=== PATIENT | male | born 1970 | race Caucasian/White ===

== ENCOUNTER 2021-01-23 01:47 | Emergency (ER) | payer MEDICAID ==
[~2021-01-23] VITALS: Ht 180.3 cm; Wt 64.1 kg
[~2021-01-23 01:47] MED LIST: ALPR2TAB2; GABA400C; IBUP-1623
--- NOTE | 2021-01-23 02:40 | NUR ---
pt presents to ER for chest pain, pt states he has pain in the left side of his chest since yesterday, pt states the pain radiates to his left arm and left side of his face as well, pt states he feels dizzy and short of breath as well, pt states he was throwing up before this started
[2021-01-23] MEDS ORDERED: DIAZEPAM 5 MG TABLET ONE (03:23)
[2021-01-23 03:29] LABS: BASOPHILS % (AUTO) 1 % (0-1); EOSINOPHILS % (AUTO) 2 % (1-7); LYMPHOCYTES % (AUTO) 31 % (22-44); MEAN CORPUSCULAR HEMOGLOBIN 32.9 pg (27.5-34.5); MEAN CORPUSCULAR HGB CONC 34.4 g/dL (33.2-36.2); MEAN PLATELET VOLUME 8.9 fL (7.4-10.4); MONOCYTES % (AUTO) 10 % (2-9); NEUTROPHILS % (AUTO) 56 % (42-75); PLATELET COUNT 153 x10^3/uL (130-400); RED BLOOD COUNT 3.72 x10^6/uL (4.38-5.82); RED CELL DISTRIBUTION WIDTH 14.6 % (9.4-14.8)
[2021-01-23] MEDS ORDERED: DIAZEPAM 5 MG TABLET PO ONE (03:30)
[2021-01-23 03:41] LABS: ALANINE AMINOTRANSFERASE 25 U/L (12-78); ALBUMIN 3.5 g/dL (3.4-5.0); ANION GAP 2 mmol/L (5-15); CALCIUM 8.1 mg/dL (8.5-10.1); CHLORIDE 109 mmol/L (98-107); CREATININE 1.03 mg/dL (0.7-1.3)
--- NOTE | 2021-01-23 03:43 | NUR ---
PT SITTING UP IN BED, A/OX4, ALL NEEDS IN REACH, CALL [facility] IN REACH, NAD AT THIS TIME, VSS
[2021-01-23 03:45] LABS: ALKALINE PHOSPHATASE 60 U/L (45-117); BILIRUBIN,TOTAL 0.6 mg/dL (0.2-1.0); TOTAL PROTEIN 6.5 g/dL (6.4-8.2); TROPONIN I < 0.015 ng/mL (0.000-0.045)
[2021-01-23] MEDS ORDERED: KETOROLAC 60 MG/2 ML ONE (03:47)
[2021-01-23] MEDS ORDERED: KETOROLAC 30 MG/1 ML IM ONE (04:00)
--- NOTE | 2021-01-23 04:22 | NUR ---
MD AT BEDSIDE TO DISCUSS POC
[2021-01-23 04:34] VITALS: BP 127/80
== END 2021-01-23 04:36 | disposition home or self-care (01) ==
LOC: ED 03:00
DX: R07.89 Other chest pain (principal); R09.1 Pleurisy
CPT/HCPCS: 36415; 71045; 80053; 84484; 85025; 85379; 93005; 96372; 99285; J1885